=== PATIENT | female | born 1965 | race Caucasian/White ===

== ENCOUNTER 2017-09-27 11:49 | Emergency (ER) | payer OTHER ==
[2017-09-27 11:54] VITALS: BP 155/106; TEMP 97.7
[2017-09-27] MEDS ORDERED: IBUPROFEN 600 MG TAB PO ONE (12:09)
--- NOTE | 2017-09-27 13:34 | EDPHY ---
H & P Time Seen by Provider: 09/27/17 12:13 HPI/ROS: CHIEF COMPLAINT: Left foot injury HISTORY OF PRESENT ILLNESS: 52-year-old female presents to the emergency department with injury to her left foot. The patient states earlier today she stepped in a hole and twisted her left foot. She felt and heard a loud pop. She complains of isolated pain to the left foot. She denies any other trauma or injury. Unable to bear weight. ROS: Denies numbness or tingling in her toes, pain in her left ankle or knee. Past Medical/Surgical History: Negative Social History: and lives in [place] Smoking Status: Former smoker Physical Exam: On examination the patient has swelling and pain over the 5th metatarsal. There is no abrasion or puncture wound noted. Normal sensation to light touch with normal 2 point discrimination. Strong dorsalis pedis pulse on the dorsal aspect of the left foot. Nontender to palpate in the ankle. Achilles tendon is intact. Limited plantar flexion and dorsiflexion secondary to pain. Gait is not tested due to pain. Constitutional: Initial Vital Signs Temperature (C) 36.5 C 09/27/17 11:52 Heart Rate 84 09/27/17 11:52 Respiratory Rate 16 09/27/17 11:52 Blood Pressure 155/106 H 09/27/17 11:52 O2 Sat (%) 94 09/27/17 11:52 O2 Delivery Mode Room Air Allergies/Adverse Reactions: No Known Allergies Allergy (Unverified 09/27/17 11:55) MDM/Departure - MDM Imaging Results: Imaging Impressions Foot X-Ray 09/27/17 12:09 Impression: Nondisplaced fracture involving the distal two third's diaphyseal portion of the fifth metatarsal. Imaging: I viewed and interpreted images myself Procedures: Patient was placed in Hollis boot and examined post application in good placement with normal COUNSELING CASE MANAGER. Medications Given: Discontinued Medications Ibuprofen (Motrin) 600 mg PO EDNOW ONE Stop: 09/27/17 12:10 Last Admin: 09/27/17 12:15 Dose: 600 mg ED Course/Re-evaluation: 52-year-old female presents to the emergency department left foot injury. X- rays reveal isolated nondisplaced left 5th metatarsal fracture. She was placed in a Hollis boot, will be nonweightbearing, and was given orthopedic referral. - Depart Disposition: Home, Routine, Self-Care Clinical Impression: Foot fracture, left Qualifiers: Encounter type: initial encounter Fracture type: closed Qualified Code(s): S92.902A - Unspecified fracture of left foot, initial encounter for closed fracture Condition: Good Instructions: Foot Fracture in Adults (ED) Additional Instructions: Nonweightbearing until follow-up with orthopedic surgeon this coming week. Ibuprofen 600 mg every 8 hours as needed for pain. Ice and elevate as much as possible to help relieve swelling. Return to the emergency department if you develop numbness or tingling in your toes, increasing pain or any other concerns. Referrals: Diane Kwong MD [Medical Doctor] - 2-3 days, call for appt. (Orthopedic surgeon on-call)
[2017-09-27 13:50] VITALS: PULSE 83; RESP 18; O2SAT 95
== END 2017-09-27 13:51 | disposition home or self-care (01) ==
DX: S92.355A Nondisplaced fracture of fifth metatarsal bone, left foot, initial encounter for closed fracture (principal); Z87.891 Personal history of nicotine dependence; W18.42XA Slipping, tripping and stumbling without falling due to stepping into hole or opening, initial encounter